=== PATIENT | male | born 1995 | race African-American/Black ===

== ENCOUNTER 2021-12-16 19:53 | Emergency (ER) | payer SELFPAY ==
[~2021-12-16] VITALS: Ht 193 cm; Wt 79.5 kg
[2021-12-16 21:20] VITALS: BP 135/62
[2021-12-16] MEDS ORDERED: IBUP-1007 PO (23:15)
[2021-12-16] MEDS ORDERED: AMOX1TAB11 PO (23:15)
--- NOTE | 2021-12-16 23:17 | PHYS DOC ---
Past Medical History Past Medical History: No Pertinent History Past Surgical History: No Surgical History Smoking Status: Current Every Day Smoker Alcohol Use: None Drug Use: None General Adult EDM: Chief Complaint: DENTAL PROBLEM HPI: HPI: Patient is a 26-year-old male presents to the emergency department complaining of dental pain to all of his molars on his right upper side for the past 2 weeks. Patient reports he has had problems with his teeth for several months, cannot afford to see a dentist. Patient denies facial numbness or tongue numbness, denies throat discomfort, denies sore throat, ear pain, chest pains, chest discomfort, heart palpitations, or fever or chills. Patient denies other physical complaints or physical concerns. Patient reports he has not taken any pain medications at home. Review of Systems: Review of Systems: 14 body systems of review of systems have been reviewed. See HPI for pertinent positives and negative responses, otherwise all other systems are negative, nonpertinent or noncontributory. Constitutional: Negative except as outlined in HPI above. Skin: Negative except as outlined in HPI above. Eyes: Negative except as outlined in HPI above. HENT: Negative except as outlined in HPI above. Respiratory: Negative except as outlined in HPI above. Cardiovascular: Negative except as outlined in HPI above. GI: Negative except as outlined in HPI above. : Negative except as outlined in HPI above. Musculoskeletal: Negative except as outlined in HPI above. Integument: Negative except as outlined in HPI above. Neurologic: Negative except as outlined in HPI above. Endocrine: Negative except as outlined in HPI above. Lymphatic: Negative except as outlined in HPI above. Psychiatric: Negative except as outlined in HPI above. Heart Score: C/O Chest Pain: No Risk Factors: Risk Factors: DM, Current or recent (<one month) smoker, HTN, HLP, family history of CAD, obesity. Risk Scores: Score 0 - 3: 2.5% MACE over next 6 weeks - Discharge Home Score 4 - 6: 20.3% MACE over next 6 weeks - Admit for Clinical Observation Score 7 - 10: 72.7% MACE over next 6 weeks - Early Invasive Strategies Current Medications: Current Medications Medications (Trade) Dose Ordered Sig/Radha Start Time Stop Time Status Last Admin Dose Admin Acetaminophen/ Hydrocodone Bitart (Lortab 5/325) 2 tab 1X ONCE 3/15/22 23:30 12/16/21 23:31 12/16/21 23:06 2 TAB Amoxicillin/ Clavulanate Potassium (Augmentin 875/ 125mg) 1 tab 1X ONCE 12/16/21 23:30 12/16/21 23:31 12/16/21 23:04 1 TAB Ibuprofen (Motrin) 600 mg 1X ONCE 12/16/21 23:30 12/16/21 23:31 12/16/21 23:05 600 MG Allergies: Allergies: Allergies Coded Allergies Type Severity Reaction Last Updated Verified No Known Drug Allergies 03/08/15 No Physical Exam: PE: Constitutional: Well developed, well nourished, no acute distress, non-toxic appearance. 26-year-old male in no apparent distress. HENT: Normocephalic, atraumatic. Oropharynx moist, pink, no deep tissue infectious process appreciated, oral mucosa is moist and pink, no drooling, no trismus appreciated, there is no lymphadenopathy of the head or neck appreciated, bilateral TMs intact and within normal limits, patient has marked dental caries with teeth in various stages of decay, there is no purulent drainage or oral abscesses appreciated, there is gingivitis. Eyes: Conjunctiva normal, no discharge. Neck: Normal range of motion, no stridor. Cardiovascular: No cyanosis appreciated, distal cap refill less than 2 seconds. Lungs & Thorax: Patient is in no respiratory distress, no audible adventitious lung sounds appreciated. Abdomen: Nontender, no abnormalities noted. Skin: Warm, dry, no erythema, no rash. Back: No tenderness, no deformities. Extremities: No tenderness, no cyanosis, no clubbing, ROM intact, no edema. Neurologic: Alert and oriented X 3, normal motor function, normal sensory function, no focal deficits noted. Psychologic: Affect normal, judgement normal, mood normal. Current Patient Data: Vital Signs: Vital Signs Date Time Temp Pulse Resp B/P (MAP) Pulse Ox O2 Delivery O2 Flow Rate FiO2 12/16/21 23:06 18 98 Room Air 12/16/21 21:20 98.2 62 135/62 (86) 98.2 EKG: EKG: [] Radiology/Procedures: Radiology/Procedures: [] Course & Med Decision Making: Course & Med Decision Making Pertinent Labs and Imaging studies reviewed. (See chart for details) 26-year-old male, vital signs reviewed, presents to the emergency department concerning dental pain. Physical examination concerning for dental caries. There is no specific dental abscess appreciated, will cover with antibiotic prophylaxis treatment with amoxicillin/clavulanic acid 875 twice daily x10 days. Will give p.o. pain medication and first antibiotic dosing in the ED tonight prior to discharge. Discussed strict follow-up with dentist, return to ER precautions or concerns, reviewed medications, side effects, home care for dental pain, patient gave verbal understanding of and is amenable to ED dis charge planning. Discussed with the patient all findings and diagnostic testing as well as the need to follow-up with their primary care provider for further evaluation and treatment or return to the ED if any new or worsening symptoms. Strict return precautions were also discussed at length, the patient voiced understanding and agreement with the discharge planning. The patient was nontoxic in appearance, in no apparent distress, and hemodynamically stable at the time of disposition. Dragon Disclaimer: Dragon Disclaimer: This electronic medical record was generated, in whole or in part, using a voice recognition dictation system. Departure Departure Impression: Primary Impression: Dentalgia Additional Impression: Dental caries Disposition: HOME / SELF CARE / HOMELESS Condition: GOOD Referrals: NO PCP (PCP) Patient Instructions: Dental Caries Additional Instructions: You were seen today in the emergency department for dental pain. You have many teeth that are decaying. Please use warm salt water swish and spits for comfort, continue to perform good oral care, I have started you on an antibiotic, please take as directed till complete. It is imperative that you follow-up with a dentist, I have attached a list of dental clinics in the area please call tomorrow for the soonest appointment. You may continue to use [id number] Tylenol or Motrin for pain and discomfort. Thank you for visit ing our Emergency Department. It was a pleasure taking care of you today in the emergency department and we appreciate you trusting us with your care. If any additional problems come up don't hesitate to return to visit us. Please follow up with your primary care provider so they can plan additional care if needed and know about the problem that you had. If symptoms worsen come back to the Emergency Department. Any concerning symptoms that start such as chest pain, shortness of air, weakness or numbness on one side of the body, running high fevers or any other concerning symptoms return to the ER. Scripts Amoxicillin/Potassium Clav (AMOX TR-K CLV 875-125 MG TAB) 1 Each Tablet 1 TAB PO BID for dental infection, #20 TAB 0 Refills Prov: RUIZ DUCKWORTH APRN 12/16/21 Ibuprofen (IBUPROFEN) 600 Mg Tablet 600 MG PO PRN Q6HRS PRN for INFLAMMATION, #30 TAB 0 Refills Prov: RUIZ DUCKWORTH APRN 12/16/21 RUIZ DUCKWORTH APRN Dec 16, 2021 23:16
[2021-12-16] MEDS ORDERED: IBUPROFEN 200 MG TABLET. PO ONE (23:30)
[2021-12-16] MEDS ORDERED: AMOXICILLIN/K CLAV 875/125MG TABLET. PO ONE (23:30)
[2021-12-16] MEDS ORDERED: HYDROcodone/APAP 5/325MG 1 TAB TABLET PO ONE (23:30)
== END 2021-12-16 23:30 | disposition home or self-care (01) ==
LOC: ER 19:53
DX: K02.9 Dental caries, unspecified (principal); K08.89 Other specified disorders of teeth and supporting structures; F17.200 Nicotine dependence, unspecified, uncomplicated
CPT/HCPCS: 99284